=== PATIENT | male | born 1990 | race Caucasian/White ===

== ENCOUNTER 2018-02-26 01:40 | Emergency (ER) | payer SELFPAY ==
[~2018-02-26] VITALS: Ht 180.3 cm; Wt 85.0 kg
[2018-02-26 01:45] VITALS: BP 101/70
== END 2018-02-26 02:05 | disposition home or self-care (01) ==
LOC: ER 01:40
DX: R53.83 Other fatigue (principal); Z00.8 Encounter for other general examination
CPT/HCPCS: 99283